=== PATIENT | male | born 1955 | race African-American/Black ===

== ENCOUNTER 2016-10-21 11:21 | Emergency (ER) | payer SELFPAY ==
[2016-10-21] MEDS ORDERED: Acetaminophen 500 MG TAB ONE (11:47)
[2016-10-21] MEDS ORDERED: Ibuprofen 200 MG TAB ONE (11:47)
--- NOTE | 2016-10-21 12:40 | RAD ---
PA CHEST RADIOGRAPH AND RIGHT RIB SERIES: DATE: 10/21/16. PROVIDED CLINICAL HISTORY: Right-sided rib pain status post injury. FINDINGS: Comparison is made with the chest radiograph dated 12/06/14. Cardiac and mediastinal silhouette is u nchanged in appearance. There is elevation of the right hemidiaphragm, stable as compared with prio r. Parenchymal opacity at the right lung base may reflect subsegmental atelectasis or consolidation . There is no evidence for pneumothorax. Mild displaced right 8th and 10th rib fractures are seen posterolaterally. IMPRESSION: 1. Nondisplaced posterior 8th and 10th rib fractures. 2. Parenchymal opacity at the right lung base may reflect subsegmental atelectasis or consolidation . No evidence for pneumothorax. POS: [facility]
== END 2016-10-21 12:17 | disposition home or self-care (01) ==
LOC: NAV ERS 11:21
DX: S22.41XA Multiple fractures of ribs, right side, initial encounter for closed fracture (principal); I10 Essential (primary) hypertension; E11.9 Type 2 diabetes mellitus without complications; F31.9 Bipolar disorder, unspecified; F17.210 Nicotine dependence, cigarettes, uncomplicated; Z79.4 Long term (current) use of insulin; Z79.899 Other long term (current) drug therapy; V80.010A Animal-rider injured by fall from or being thrown from horse in noncollision accident, initial encounter